=== PATIENT | male | born 1945 | race Caucasian/White ===

== ENCOUNTER 2019-03-28 22:00 | Emergency (ER) | payer MEDICARE ==
[~2019-03-28 22:00] MED LIST: ATOR20TA22 PO; DOC100 PO; LEV500 PO; LISI-349 PO; LOR5 PO; MIRT7.5T2 PO; POTA99TA13 PO; [UNRECOGNIZED DRUG - OTHER] PO
[2019-03-28 22:05] VITALS: BP 149/99
--- NOTE | 2019-03-28 22:11 | ER Report ---
History and Physical Time Seen By MD: 22:09 Hx. of Stated Complaint: patient states that he was moving a microwave and it slipped and cut his right hand. HPI/ROS CHIEF COMPLAINT: skin tear HISTORY OF PRESENT ILLNESS: This is a 73 year old male. He was carrying a microwave, tripped and injured his left hand. Dorsal surface, skin tear. Normal movement. Normal sensation. Last tetaus 2 years ago. Allergies: Coded Allergies: No Known Allergies (Verified Allergy, Intermediate, 07/01/16) Home Meds Active Scripts Cephalexin Monohydrate (CEPHALEXIN) 500 Mg Cap, 500 MG PO Q6H, #20 CAP 0 Refills Prov:MELVI EDWARDS MD 03/28/19 Reported Medications [caryn [place]] No Conflict Check, 1 UNIT PO QDAY 07/01/16 Atorvastatin Calcium (LIPITOR) 20 Mg Tablet, 1 TAB PO QAM, TAB 07/01/16 Mirtazapine (MIRTAZAPINE) 7.5 Mg Tablet, 0.5 TAB PO QDAY 07/01/16 Lisinopril (Lisinopril) 20 Mg Tablet, 20 MG PO QDAY, 0 Refills 07/29/11 Reviewed Nurses Notes: Yes Hx Alcohol Use: Yes (6 oz q night of wine) Constitutional Vital Sign - Last 24 Hours 03/28/19 22:05 Temp 98.0 Pulse 80 Resp 16 B/P (MAP) 149/99 Pulse Ox 93 O2 Delivery Room Air Physical Exam General: Alert, no distress. Skin: Dorsal hand, skin tear. bleeding controlled. cleaned. Neuro: Normal. Cardio: normal cap refill Musculoskeletal: normal movement, no weakness. Medical Decision Making ED Course/Re-evaluation ED Course Wound care discussed. Cleaned and bandaged. Cephalexin 500mg 4 times a day for 5 days. Decision to Disposition Date: Mar 28, 2019 Decision to Disposition Time: 22:13 Depart Departure Latest Vital Signs Vital Signs Date Time Temp Pulse Resp B/P (MAP) Pulse Ox O2 Delivery O2 Flow Rate FiO2 03/28/19 22:05 98.0 80 16 149/99 93 Room Air Impression: Primary Impression: Skin tear Condition: Improved Disposition: HOME OR SELF-CARE Referrals: MATILDA MOREAU MD (PCP) New Scripts Cephalexin Monohydrate (CEPHALEXIN) 500 Mg Cap 500 MG PO Q6H, #20 CAP 0 Refills Prov: MELVI EDWARDS MD 03/28/19 Patient Instructions: Skin Tear (ED) Additional Instructions: Wound Care: Wash the wound once a day with soap and water. Dry the wound and apply a small amount of antibiotic ointment with a clean dressing. If the dressing becomes wet or dirty, repeat cleaning and dressing. You can also use a clear cover called an op-site if you want starting tomorrow. Use this just like you would a dressing after cleaning the wound. Pain Control: Use Tylenol or ibuprofen for pain. Using and ice pack can help reduce swelling. Cephalexin 500mg 4 times a day for 5 days. MELVI EDWARDS MD Mar 28, 2019 22:11
[2019-03-28] MEDS ORDERED: CEPH500C24 PO (22:17)
[2019-03-28] MEDS ORDERED: CEPHALEXIN 500 MG CAP TH 2 CAP/BOTTLE PO ONE (22:20)
== END 2019-03-28 22:38 | disposition home or self-care (01) ==
LOC: ER 22:25
DX: S60.512A Abrasion of left hand, initial encounter (principal); W18.40XA Slipping, tripping and stumbling without falling, unspecified, initial encounter
CPT/HCPCS: 99283